=== PATIENT | male | born 1955 | race Caucasian/White ===

== ENCOUNTER 2016-07-21 14:45 | Inpatient (IN) | payer MEDICAID ==
[~2016-07-21] VITALS: Ht 185.4 cm; Wt 91.8 kg
[2016-07-21] MEDS ORDERED: IBUPROFEN 800 MG TABLET PO PRN (21:00)
[2016-07-21] MEDS ORDERED: DIPHENHYDRAMINE 25 MG CAPSULE PO PRN (21:00)
[2016-07-21] MEDS ORDERED: WARFARIN 7.5 MG TABLET PO-COUM SCH (21:00)
[2016-07-21 23:00] VITALS: BP 109/70
[2016-07-21] MEDS: FUROSEMIDE 40 MG/4 ML IV SCH (23:40)
[2016-07-21] MEDS: ATORVASTATIN 80 MG TABLET PO SCH (23:40)
[2016-07-22] MEDS ORDERED: HEPARIN 5,000 UNITS/ML, 1ML IV ONE (01:00)
[2016-07-22] MEDS ORDERED: DIPHENHYDRAMINE 25 MG CAPSULE ONE (02:54)
[2016-07-22] MEDS ORDERED: HEPARIN 25,000 UNITS/500ML PMX 500 ML ONE (02:54)
[2016-07-22] MEDS ORDERED: HEPARIN 5,000 UNITS/ML, 1ML ONE (02:54)
[2016-07-22] MEDS: HEPARIN 25,000 UNITS/500ML PMX 500 ML IV PRN (03:00)
[2016-07-22] MEDS ORDERED: CARVEDILOL 6.25 MG TABLET PO SCH (06:00)
[2016-07-22 07:03] VITALS: BP 95/55
[2016-07-22] MEDS: NICOTINE 7 MG/24 HR PATCH.TD24 TD SCH (09:00)
[2016-07-22] MEDS: FUROSEMIDE 40 MG/4 ML IV SCH ×2 (09:45→22:00)
[2016-07-22] MEDS: DIGOXIN 0.125 MG TABLET PO SCH (09:45)
[2016-07-22] MEDS: SPIRONOLACTONE 25 MG TABLET PO SCH (09:45)
[2016-07-22 11:25] VITALS: BP 94/48
[2016-07-22] MEDS ORDERED: HYDROcodone/APAP 5/325 TABLET ONE (11:34)
[2016-07-22 13:10] VITALS: BP 85/47
[2016-07-22] MEDS ORDERED: HYDROcodone/APAP 5/325 TABLET PO PRN (14:30)
[2016-07-22] MEDS: CARVEDILOL 6.25 MG TABLET PO SCH (17:25)
[2016-07-22] MEDS ORDERED: WARFARIN 7.5 MG TABLET PO-COUM ONE (18:00)
[2016-07-22 18:58] VITALS: BP 108/67
[2016-07-22] MEDS: HEPARIN 5,000 UNITS/ML, 1ML IV PRN (19:17)
[2016-07-22] MEDS: HYDROcodone/APAP 5/325 TABLET PO PRN (19:17)
[2016-07-22] MEDS: ATORVASTATIN 80 MG TABLET PO SCH (22:00)
[2016-07-23 02:19] VITALS: BP 98/58
[2016-07-23] MEDS: HEPARIN 5,000 UNITS/ML, 1ML IV PRN ×2 (02:37→12:57)
[2016-07-23] MEDS: HYDROcodone/APAP 5/325 TABLET PO PRN ×2 (02:46→15:04)
[2016-07-23 05:24] LABS: BLOOD UREA NITROGEN 13 mg/dL (7-18)
[2016-07-23] MEDS: CARVEDILOL 6.25 MG TABLET PO SCH ×2 (06:00→16:59)
[2016-07-23] MEDS ORDERED: OMEPRAZOLE 20 MG CAPSULE.DR PO SCH (07:30)
[2016-07-23 07:40] VITALS: BP 102/67
[2016-07-23] MEDS: NICOTINE 7 MG/24 HR PATCH.TD24 TD SCH (08:33)
[2016-07-23] MEDS: FUROSEMIDE 40 MG/4 ML IV SCH (08:33)
[2016-07-23] MEDS: DIGOXIN 0.125 MG TABLET PO SCH (08:33)
[2016-07-23] MEDS: SPIRONOLACTONE 25 MG TABLET PO SCH (08:33)
[2016-07-23] MEDS: HEPARIN 25,000 UNITS/500ML PMX 500 ML IV PRN (08:43)
[2016-07-23 13:32] VITALS: BP 97/60
[2016-07-23 17:00] VITALS: BP 90/48
[2016-07-23] MEDS ORDERED: WARFARIN 7.5 MG TABLET PO-COUM ONE (18:00)
[2016-07-23] MEDS ORDERED: WARF7.5T PO (21:36)
[2016-07-23] MEDS ORDERED: SACU1TAB PO (21:36)
[2016-07-23] MEDS ORDERED: SOTA80TA PO (21:36)
[2016-07-23] MEDS ORDERED: DIGO125T PO (21:36)
[2016-07-23] MEDS ORDERED: BUPR200T2 PO (21:36)
[2016-07-23] MEDS ORDERED: CARV6.252 PO (21:36)
[2016-07-23] MEDS ORDERED: LACT10SO28 PO (21:36)
[2016-07-23] MEDS ORDERED: FURO-92 PO (21:36)
[2016-07-23] MEDS ORDERED: IBUP800T PO (21:36)
[2016-07-23] MEDS ORDERED: SENN8.6T4 PO (21:36)
[2016-07-23] MEDS ORDERED: FLUO40CA2 PO (21:36)
[2016-07-23] MEDS ORDERED: OMEP-110 PO (21:36)
[2016-07-23] MEDS ORDERED: SPIR25TA3 PO (21:36)
[2016-07-24 11:26] LABS: BLOOD UREA NITROGEN 15 mg/dL (7-18); IS PT STATUS REG ER OR PRE ER? NO
[2016-07-25 09:38] LABS: ASPARTATE AMINO TRANSFERASE 20 U/L (15-37); BLOOD UREA NITROGEN 16 mg/dL (7-18)
== END 2016-07-23 18:05 | disposition left against medical advice (07) | DRG 292 ==
LOC: UNDOADMIN 14:45 → 5SO 14:45
PROVIDERS: ADMIT Internal Medicine
DX: I11.0 Hypertensive heart disease with heart failure (principal); I82.502 Chronic embolism and thrombosis of unspecified deep veins of left lower extremity; D68.69 Other thrombophilia; I50.43 Acute on chronic combined systolic (congestive) and diastolic (congestive) heart failure; J44.9 Chronic obstructive pulmonary disease, unspecified; I48.91 Unspecified atrial fibrillation; Z66 Do not resuscitate; I45.81 Long QT syndrome; I25.10 Atherosclerotic heart disease of native coronary artery without angina pectoris; I34.0 Nonrheumatic mitral (valve) insufficiency; I27.2 Other secondary pulmonary hypertension; E78.5 Hyperlipidemia, unspecified; I95.9 Hypotension, unspecified; Z91.19 Patient's noncompliance with other medical treatment and regimen; I25.2 Old myocardial infarction; Z95.2 Presence of prosthetic heart valve; Z95.1 Presence of aortocoronary bypass graft; Z88.0 Allergy status to penicillin; Z79.899 Other long term (current) drug therapy; Z79.01 Long term (current) use of anticoagulants; Z82.49 Family history of ischemic heart disease and other diseases of the circulatory system; Z80.9 Family history of malignant neoplasm, unspecified; Z95.0 Presence of cardiac pacemaker; Z87.891 Personal history of nicotine dependence; Z59.0 Homelessness
CPT/HCPCS: 36415; 70450; 71020; 72110; 72220; 80048; 80053; 80162; 82040; 83735; 83880; 84484; 85025; 85520; 85610; 85730; 93005; J1644; J1940; Q0163

== ENCOUNTER 2016-07-23 20:48 | Inpatient (IN) | payer MEDICAID ==
[~2016-07-23] VITALS: Ht 182.9 cm; Wt 89.1 kg
[2016-07-23 21:20] LABS: BLOOD UREA NITROGEN 15 mg/dL (7-18)
[2016-07-23 21:25] LABS: IS PT STATUS REG ER OR PRE ER? YES
[2016-07-23] MEDS ORDERED: OMEP-110 PO (21:36)
[2016-07-23] MEDS ORDERED: BUPR200T2 PO (21:36)
[2016-07-23] MEDS ORDERED: DIGO125T PO (21:36)
[2016-07-23] MEDS ORDERED: IBUP800T PO (21:36)
[2016-07-23] MEDS ORDERED: SENN8.6T4 PO (21:36)
[2016-07-23] MEDS ORDERED: SPIR25TA3 PO (21:36)
[2016-07-23] MEDS ORDERED: WARF7.5T PO (21:36)
[2016-07-23] MEDS ORDERED: LACT10SO28 PO (21:36)
[2016-07-23] MEDS ORDERED: SACU1TAB PO (21:36)
[2016-07-23] MEDS ORDERED: FURO-92 PO (21:36)
[2016-07-23] MEDS ORDERED: FLUO40CA2 PO (21:36)
[2016-07-23] MEDS ORDERED: CARV6.252 PO (21:36)
[2016-07-23] MEDS ORDERED: SOTA80TA PO (21:36)
[2016-07-23] MEDS ORDERED: ACETAMINOPHEN 325 MG TABLET PO ONE (22:00)
[2016-07-23] MEDS ORDERED: SODIUM CHLORIDE FLUSH 10ML SYR IVF ONE (22:00)
[2016-07-23] MEDS ORDERED: OMNIPAQUE 350 MG/ML, 100ML BOTTLE ONE (22:37)
[2016-07-23] MEDS ORDERED: [UNRECOGNIZED DRUG - REMARK] MC SCH (23:30)
[2016-07-23] MEDS ORDERED: HEPARIN 5,000 UNITS/ML, 1ML IV ONE (23:45)
[2016-07-24] MEDS ORDERED: HEPARIN 5,000 UNITS/ML, 1ML ONE (00:08)
[2016-07-24] MEDS ORDERED: HEPARIN 25,000 UNITS/500ML PMX 500 ML ONE (00:08)
[2016-07-24] MEDS: HEPARIN 25,000 UNITS/500ML PMX 500 ML IV PRN (00:27)
[2016-07-24] MEDS ORDERED: SODIUM CHLORIDE 0.9% 1,000 ML IV SCH (01:22)
[2016-07-24] MEDS ORDERED: ACETAMINOPHEN 325 MG TABLET PO PRN (01:30)
[2016-07-24] MEDS ORDERED: BISACODYL 10 MG SUPP PR PRN (01:30)
[2016-07-24] MEDS ORDERED: LABETALOL 5MG/ML, 20ML IVPush PRN (01:30)
[2016-07-24] MEDS ORDERED: POLYETHYLENE GLYCOL 17 GM PACKET PO PRN (01:30)
[2016-07-24 02:15] VITALS: BP 105/68
[2016-07-24] MEDS: ATORVASTATIN 80 MG TABLET PO SCH ×2 (02:43→21:58)
[2016-07-24] MEDS: DOCUSATE 100 MG CAPSULE PO PRN ×2 (02:51→14:10)
[2016-07-24 03:27] LABS: IS PT STATUS REG ER OR PRE ER? NO
[2016-07-24 05:05] LABS: DAU SCREEN DISCLAIMER
[2016-07-24 05:08] LABS: PATH.CAST-FLAG NOT PRESENT; SPERM-FLAG NOT PRESENT; SRC-FLAG NOT PRESENT; XTAL-FLAG NOT PRESENT; YLC-FLAG NOT PRESENT
[2016-07-24 07:06] VITALS: BP 116/75
[2016-07-24] MEDS: ASPIRIN 325 MG TABLET PO SCH (07:18)
[2016-07-24] MEDS: VALSARTAN HOMEMEDPO SCH ×2 (09:00→21:00)
[2016-07-24] MEDS: SACUBITRIL HOMEMEDPO SCH ×2 (09:00→21:00)
[2016-07-24] MEDS: HEPARIN 5,000 UNITS/ML, 1ML IV PRN ×3 (09:13→23:40)
[2016-07-24] MEDS: CARVEDILOL 6.25 MG TABLET PO SCH ×2 (09:14→21:58)
[2016-07-24] MEDS: SOTALOL 80MG TABLET PO SCH ×2 (09:14→21:58)
[2016-07-24] MEDS ORDERED: REGADENOSON 0.4 MG/5 ML SYRINGE ONE (10:03)
[2016-07-24 10:23] LABS: IS PT STATUS REG ER OR PRE ER? NO
[2016-07-24] MEDS: FUROSEMIDE 40 MG TABLET PO SCH (12:20)
[2016-07-24] MEDS: SPIRONOLACTONE 25 MG TABLET PO SCH (12:20)
[2016-07-24] MEDS: DIGOXIN 0.125 MG TABLET PO SCH (12:20)
[2016-07-24 13:02] VITALS: BP 91/54
[2016-07-24] MEDS: WARFARIN 7.5 MG TABLET PO-COUM SCH (17:27)
[2016-07-24 18:51] VITALS: BP 90/60
[2016-07-24 21:45] VITALS: BP 100/63
[2016-07-25] MEDS: HEPARIN 25,000 UNITS/500ML PMX 500 ML IV PRN ×2 (00:43→21:18)
[2016-07-25 01:08] VITALS: BP 108/68
[2016-07-25] MEDS: TRAZODONE 50MG TABLET PO PRN ×2 (01:36→23:07)
[2016-07-25] MEDS: ASPIRIN 325 MG TABLET PO SCH (06:07)
[2016-07-25 06:13] LABS: BLOOD UREA NITROGEN 14 mg/dL (7-18)
[2016-07-25 07:22] VITALS: BP 96/66
[2016-07-25] MEDS: SPIRONOLACTONE 25 MG TABLET PO SCH (08:34)
[2016-07-25] MEDS: SOTALOL 80MG TABLET PO SCH ×2 (08:34→21:15)
[2016-07-25] MEDS: DIGOXIN 0.125 MG TABLET PO SCH (08:36)
[2016-07-25] MEDS: FUROSEMIDE 40 MG TABLET PO SCH (08:36)
[2016-07-25] MEDS: CARVEDILOL 6.25 MG TABLET PO SCH ×2 (08:36→21:15)
[2016-07-25] MEDS: DOCUSATE 100 MG CAPSULE PO PRN (08:55)
[2016-07-25] MEDS: SACUBITRIL/VALSARTAN 24MG-26MG TAB PO SCH ×2 (09:00→21:00)
[2016-07-25 13:16] VITALS: BP 99/59
[2016-07-25] MEDS: HEPARIN 5,000 UNITS/ML, 1ML IV PRN ×2 (14:33→21:17)
[2016-07-25] MEDS ORDERED: LABETALOL 5MG/ML, 20ML IVPush PRN (15:47)
[2016-07-25] MEDS: WARFARIN 7.5 MG TABLET PO-COUM SCH (17:31)
[2016-07-25 19:46] VITALS: BP_SYST 85; BP_SYST 97; BP_DIAS 54; BP_DIAS 57
[2016-07-25] MEDS ORDERED: SENNA/DOCUSATE TABLET PO SCH (21:00)
[2016-07-25] MEDS: ATORVASTATIN 80 MG TABLET PO SCH (21:16)
[2016-07-26 00:22] VITALS: BP 93/53
[2016-07-26 03:52] LABS: BLOOD UREA NITROGEN 18 mg/dL (7-18)
[2016-07-26] MEDS ORDERED: POTASSIUM CHLORIDE 20 MEQ TAB.ER.PRT PO SCH (08:00)
[2016-07-26] MEDS ORDERED: FUROSEMIDE 40 MG/4 ML IV SCH (09:00)
[2016-07-26] MEDS ORDERED: LISINOPRIL 5 MG TABLET PO SCH (09:00)
== END 2016-07-26 06:01 | disposition left against medical advice (07) | DRG 302 ==
LOC: ED 21:47 → EDIP 07-24 01:00 → 5SO 07-24 02:11
PROVIDERS: ADMIT Internal Medicine; ATTEND Internal Medicine
DX: I25.119 Atherosclerotic heart disease of native coronary artery with unspecified angina pectoris (principal); I50.43 Acute on chronic combined systolic (congestive) and diastolic (congestive) heart failure; I13.0 Hypertensive heart and chronic kidney disease with heart failure and stage 1 through stage 4 chronic kidney disease, or unspecified chronic kidney disease; N18.9 Chronic kidney disease, unspecified; I27.2 Other secondary pulmonary hypertension; Z59.0 Homelessness; I95.9 Hypotension, unspecified; J44.9 Chronic obstructive pulmonary disease, unspecified; I45.81 Long QT syndrome; I34.0 Nonrheumatic mitral (valve) insufficiency; I48.0 Paroxysmal atrial fibrillation; F17.210 Nicotine dependence, cigarettes, uncomplicated; E78.5 Hyperlipidemia, unspecified; I25.2 Old myocardial infarction; Z95.0 Presence of cardiac pacemaker; Z88.0 Allergy status to penicillin; Z82.49 Family history of ischemic heart disease and other diseases of the circulatory system; Z80.9 Family history of malignant neoplasm, unspecified; Z72.89 Other problems related to lifestyle; Z86.718 Personal history of other venous thrombosis and embolism; Z86.73 Personal history of transient ischemic attack (TIA), and cerebral infarction without residual deficits; Z95.1 Presence of aortocoronary bypass graft; Z95.3 Presence of xenogenic heart valve
CPT/HCPCS: 36415; 71010; 71275; 78452; 80048; 80307; 81001; 82040; 83880; 84484; 85025; 85520; 85610; 93005; 93017; 93306; 96374; J1644; J2785; Q9967; A9502; C9898